=== PATIENT | male | born 1975 | race Caucasian/White ===

== ENCOUNTER 2017-07-08 04:55 | Emergency (ER) | payer BC, OTHER ==
[2017-07-08] MEDS ORDERED: BABY ASPIRIN 81 MG CHEW PO ONE (05:10)
[2017-07-08] MEDS ORDERED: Nitrostat 0.4 MG (ED) SL ONE (05:10)
[2017-07-08] MEDS ORDERED: Sodium Chloride 0.9% 1000 ML 1,000 ML ONE (05:14)
[2017-07-08] MEDS ORDERED: Sodium Chloride 0.9% 1000 ML 1,000 ML IV SCH (05:15)
--- NOTE | 2017-07-08 05:17 | ERPHSYRPT ---
- History of Present Illness Time Seen by Provider: 07/08/17 05:05 Historian: patient Exam Limitations: no limitations Physician History: ABOUT 35 MINUTES AGO PT AWOKE WITH CONSTANT SHARP/DULL MID ANTERIOR CHEST PAIN RADIATING TO THE RIGHT SIDE OF THE NECK WORSE WITH DEEP BREATHING; DENIES DIAPHORESIS, NAUSEA, FEVER, SHORTNESS OF AIR. Aspirin Treatment Today: 81 mg x 4, provided by ED Allergies/Adverse Reactions: No Known Drug Allergies Allergy (Verified 07/08/17 05:14) Home Medications: No Reportable Medications [No Reported Medications] 07/08/17 [History] - Review of Systems Constitutional: No Fever Respiratory: No Dyspnea Cardiac: Chest Pain Abdominal/Gastrointestinal: No Nausea Musculoskeletal: Neck Pain Endocrine: No Excessive Sweating All Other Systems: Reviewed and Negative - Past Medical History Pertinent Past Medical History: Yes Neurological History: No Pertinent History ENT History: No Pertinent History Cardiac History: Hypertension Respiratory History: No Pertinent History Endocrine Medical History: No Pertinent History Musculoskeletal History: No Pertinent History GI Medical History: Hernia History: No Pertinent History Psycho-Social History: No Pertinent History Male Reproductive Disorders: No Pertinent History - Past Surgical History Past Surgical History: Yes Neuro Surgical History: No Pertinent History Cardiac: No Pertinent History Respiratory: No Pertinent History Gastrointestinal: Hernia Repair Genitourinary: No Pertinent History Musculoskeletal: No Pertinent History Male Surgical History: No Pertinent History - Social History Smoking Status: Never smoker Exposure to second hand smoke: No Drug Use: none - Nursing Vital Signs Nursing Vital Signs: Initial Vital Signs Temperature 97.8 F 07/08/17 04:56 Pulse Rate 56 L 07/08/17 04:56 Respiratory Rate 21 07/08/17 04:56 Blood Pressure 147/92 07/08/17 04:56 O2 Sat by Pulse Oximetry 97 07/08/17 04:56 Pain Scale Pain Intensity 2 - Physical Exam General Appearance: alert Eye Exam: PERRL/EOMI Ears, Nose, Throat Exam: TMs normal, pharynx normal, moist mucous membranes Neck Exam: normal inspection Respiratory Exam: lungs clear Cardiovascular Exam: normal heart sounds Gastrointestinal/Abdomen Exam: soft, normal bowel sounds Back Exam: normal range of motion Extremity Exam: normal inspection, No pedal edema Neurologic Exam: alert, cooperative Skin Exam: warm, dry - Course Nursing assessment & vital signs reviewed: Yes EKG Interpreted by Me: RATE (58), Sinus Oh, NORMAL AXIS, NORMAL INTERVALS - Radiology Exams Chest X-ray Interpretation: Interpreted by me, No Pneumonia Ordered Tests: Active Orders 24 hr Category Date Time Status Project Construction Manager STAT Care 07/08/17 05:11 Active EKG-ER Only STAT Care 07/08/17 05:10 Active IV Insertion STAT Care 07/08/17 05:10 Active Oxygen-ED Only NASAL CANNULA 2 lpm Care 07/08/17 05:10 Active Pulse Oximetry (ED) STAT Care 07/08/17 05:10 Active CHEST 2 VIEWS (PA AND LAT) Stat Exams 07/08/17 05:10 Taken AMYLASE Stat Lab 07/08/17 05:25 Completed CBC W DIFF Stat Lab 07/08/17 05:25 Completed CMP Stat Lab 07/08/17 05:25 Completed LIPASE Stat Lab 07/08/17 05:25 Completed MAGNESIUM Stat Lab 07/08/17 05:25 Completed NT PRO BNP Stat Lab 07/08/17 05:25 Completed TROPONIN Q3H Lab 07/08/17 05:25 Completed TROPONIN Q3H Lab 07/08/17 08:15 Ordered TROPONIN Q3H Lab 07/08/17 11:15 Ordered TROPONIN Q3H Lab 07/08/17 14:15 Ordered TROPONIN Q3H Lab 07/08/17 17:15 Ordered Medication Summary Generic Name Dose Route Start Last Admin Trade Name Freq PRN Reason Stop Dose Admin Sodium Chloride 1,000 mls @ 100 mls/hr 07/08/17 05:15 07/08/17 05:17 Sodium Chloride 0.9% 1000 Ml IV 08/07/17 05:14 100 mls/hr .Q10H SINGH Administration Discontinued Medications Generic Name Dose Route Start Last Admin Trade Name Freq PRN Reason Stop Dose Admin Aspirin 324 mg 07/08/17 05:10 07/08/17 05:17 Baby Aspirin 81 Mg Chew PO 07/08/17 05:11 324 mg STAT ONE Administration Nitroglycerin 0.4 mg 07/08/17 05:10 07/08/17 05:17 Nitrostat 0.4 Mg (Ed) SL 07/08/17 05:11 0.4 mg STAT ONE Administration Lab/Rad Data: Laboratory Result Diagrams 07/08/17 05:25 07/08/17 05:25 Laboratory Results 09/24/17 09/24/17 09/24/17 Range/Units 05:25 05:25 05:25 WBC 8.2 (4.0-10.5) K/mm3 RBC 5.12 (4.1-5.6) M/mm3 Hgb 15.4 (12.5-18.0) gm/dl Hct 44.4 (42-50) % MCV 86.7 (78-100) fl MCH 30.1 (26-32) pg MCHC 34.7 (32-36) g/dl RDW 13.2 (11.5-14.0) % Plt Count 248 (150-450) K/mm3 MPV 10.1 H (6-9.5) fl Gran % 49.8 (36.0-66.0) % Lymphocytes % 34.8 (24.0-44.0) % Monocytes % 9.6 (0.0-12.0) % Eosinophils % 5.2 H (0.00-5.0) % Basophils % 0.6 (0.0-0.4) % Basophils # 0.05 (0-0.4) Sodium 143 (136-145) mEq/L Potassium 3.8 (3.5-5.1) mEq/L Chloride 108 H (98-107) mEq/L Carbon Dioxide 26.6 (21-32) mEq/L Anion Gap 11.7 (5-15) MEQ/L BUN 11 (9-20) mg/dL Creatinine 1.14 (0.55-1.30) mg/dl Estimated GFR > 60 ML/MIN Glucose 95 (70-110) MG/DL Calcium 8.8 (8.5-10.1) mg/dL Magnesium 2.0 (1.8-2.4) mg/dL Total Bilirubin 0.30 (0.2-1.0) mg/dL AST 21 (15-37) U/L ALT 29 (12-78) U/L Alkaline Phosphatase 77 (46-116) U/L Troponin I < 0.017 (0.000-0.056) ng/ml NT-Pro-B Natriuret Pep 21 (0-125) pg/ml Serum Total Protein 6.9 (6.4-8.2) gm/dL Albumin 3.8 (3.4-5.0) g/dL Amylase 27 (25-115) U/L Lipase 129 (73-393) U/L - Departure Time of Disposition: 06:46 Departure Disposition: Home Clinical Impression: CHEST PAIN, HTN Condition: Stable Critical Care Time: No Referrals: LJ CARY MD [Primary Care Provider] - Instructions: Chest Pain Additional Instructions: FOLLOW UP WITH PRIVATE DOCTOR TOMORROW.
[2017-07-08 05:32] LABS: BASOPHIL % 0.6 % (0.0-0.4); Eosinophil % 5.2 % (0.00-5.0); Granulocytes % 49.8 % (36.0-66.0); Lymphocytes % 34.8 % (24.0-44.0); Mean Cell Volume 86.7 fl (78-100); Mean Corpuscular Hemoglobin 30.1 pg (26-32); Mean Platelet Volume 10.1 fl (6-9.5); Monocytes % 9.6 % (0.0-12.0); Platelet Count 248 K/mm3 (150-450); Red Blood Count 5.12 M/mm3 (4.1-5.6); Red Cell Distribution Width 13.2 % (11.5-14.0); White Blood Count 8.2 K/mm3 (4.0-10.5)
[2017-07-08 05:59] LABS: ALBUMIN 3.8 g/dL (3.4-5.0); ALKALINE PHOSPHATASE 77 U/L (46-116); ANION GAP 11.7 MEQ/L (5-15); BLOOD UREA NITROGEN 11 mg/dL (9-20); CHLORIDE 108 mEq/L (98-107); Carbon Dioxide 26.6 mEq/L (21-32); Glucose 95 MG/DL (70-110); LIPASE 129 U/L (73-393); Potassium 3.8 mEq/L (3.5-5.1); SGOT/AST 21 U/L (15-37); SGPT/ALT 29 U/L (12-78); SODIUM 143 mEq/L (136-145); Total Protein 6.9 gm/dL (6.4-8.2)
[2017-07-08] MEDS ORDERED: Phenergan 25 MG INJ IV ONE (06:49)
[2017-07-08] MEDS ORDERED: Hydromorphone 1 mg/ml Ampule IV ONE (06:49)
[2017-07-08] MEDS ORDERED: Hydromorphone 1 mg/ml Ampule ONE (06:52)
[2017-07-08] MEDS ORDERED: Phenergan 25 MG INJ ONE (06:52)
[2017-07-08 07:28] VITALS: BP 126/84; PULSE 84; O2SAT 96
--- NOTE | 2017-07-08 10:35 | XRAY ---
Indication: Chest pain. Comparison: October 14, 2010. PA/lateral chest remains clear again with a few incidental calcific granulomas. Heart is not enlarged. Vascularity normal. Bony thorax intact. Impression: Stable nonacute chest.
== END 2017-07-08 07:27 | disposition home or self-care (01) ==
LOC: ED 04:55
DX: R07.89 Other chest pain (principal); I10 Essential (primary) hypertension
CPT/HCPCS: 36000; 36415; 71020; 80053; 82150; 83690; 83735; 83880; 84484; 85025; 93005; 93041; 96360; 96361; 96374; 96375; 99284; J1170; J2550; A9270-GY

== ENCOUNTER 2017-08-09 17:47 | Emergency (ER) | payer OTHER ==
--- NOTE | 2017-08-09 18:26 | ERPHSYRPT ---
- History of Present Illness Source: patient Exam Limitations: no limitations Patient Subjective Stated Complaint: pt here for right sided groin pain for a couple days was seen and put on levaquin for 10 days, and pt states he is not any better Triage Nursing Assessment: pt walked in resp easy, skin w/d pink. no pain or burning with urination, Quality: aching Onset Location: scrotal, right testicle Pain Radiation: none Hx Tetanus, Diphtheria Vaccination/Date Given: Yes Hx Influenza Vaccination/Date Given: No Hx Pneumococcal Vaccination/Date Given: No Immunizations Up to Date: Yes <LINUS BEAL - Last Filed: 08/09/17 19:09> <LALITO RODRIGUEZ - Last Filed: 08/09/17 20:30> - History of Present Illness Time Seen by Provider: 08/09/17 18:22 Physician History: mild right testicular ache pain for 2 days, not better after taking levaquin, no injury, no fever, pt refused pain med, no hx renal stones, sexually active with his only, hx htn, no NV, no hematuria or dysuria (LINUS BEAL) Allergies/Adverse Reactions: No Known Drug Allergies Allergy (Verified 07/08/17 05:14) Home Medications: No Reportable Medications [No Reported Medications] 07/08/17 [History] - Past Medical History Pertinent Past Medical History: Yes Neurological History: No Pertinent History ENT History: No Pertinent History Cardiac History: Hypertension Respiratory History: No Pertinent History Endocrine Medical History: No Pertinent History Musculoskeletal History: No Pertinent History GI Medical History: Hernia History: No Pertinent History Psycho-Social History: No Pertinent History Male Reproductive Disorders: No Pertinent History - Past Surgical History Past Surgical History: Yes Neuro Surgical History: No Pertinent History Cardiac: No Pertinent History Respiratory: No Pertinent History Gastrointestinal: Hernia Repair Genitourinary: No Pertinent History Musculoskeletal: No Pertinent History Male Surgical History: No Pertinent History - Social History Smoking Status: Never smoker Exposure to second hand smoke: No Drug Use: none Patient Lives Alone: No <LINUS BEAL - Last Filed: 08/09/17 19:09> - Review of Systems Constitutional: No Fever Abdominal/Gastrointestinal: No Symptoms Genitourinary Symptoms: Testicle Pain, No Dysuria, No Hematuria, No Penile Discharge Musculoskeletal: No Back Pain Skin: No Rash Neurological: No Symptoms Psychological: No Symptoms <LINUS BEAL - Last Filed: 08/09/17 19:09> - Physical Exam General Appearance: no apparent distress Respiratory Exam: No respiratory distress Gastrointestinal/Abdomen Exam: soft, No tenderness, No distention Male Genital Exam: normal genitalia, no hernia, scrotum tenderness (R), testicular tenderness (R), No inguinal tenderness, No lesions, No herpes-like lesion(s), No inguinal lymphadenopathy, No uncircumcised Extremity Exam: normal range of motion Neurologic Exam: alert, oriented x 3, cooperative, normal mood/affect Skin Exam: normal color, warm, dry <LINUS BEAL - Last Filed: 08/09/17 19:09> - Nursing Vital Signs Nursing Vital Signs: Initial Vital Signs Temperature 97.7 F 08/09/17 17:57 Respiratory Rate 18 08/09/17 17:57 Blood Pressure 153/98 08/09/17 17:57 Pain Scale Pain Intensity 6 - Course Nursing assessment & vital signs reviewed: Yes <LALITO RODRIGUEZ - Last Filed: 08/09/17 20:30> Ordered Tests: Active Orders 24 hr Category Date Time Status TESTICLE [US] Stat Exams 08/09/17 18:21 Taken UA W/RFX UR CULTURE Stat Lab 08/09/17 18:20 Completed Lab/Rad Data: Laboratory Results 08/09/17 Range/Units 18:20 Ur Collection Type CLEAN CATCH Urine Color YELLOW (YELLOW) Urine Appearance CLEAR (CLEAR) Urine pH 5.0 (5-6) Ur Specific [place] 1.020 (1.005-1.025) Urine Protein NEGATIVE (Negative) Urine Ketones NEGATIVE (NEGATIVE) Urine Blood NEGATIVE (0-5) Aamir/ul Urine Nitrite NEGATIVE (NEGATIVE) Urine Bilirubin NEGATIVE (NEGATIVE) Urine Urobilinogen NORMAL (0-1) mg/dL Ur Leukocyte Esterase NEGATIVE (NEGATIVE) Urine Culture Reflexed NO (NO) Urine Glucose NEGATIVE (NEGATIVE) mg/dL Specimen Received 08/09/17 1820 <LINUS BEAL - Last Filed: 08/09/17 19:09> - Progress Progress: improved <LALITO RODRIGUEZ - Last Filed: 08/09/17 20:30> - Progress Progress Note: 08/09/17 19:[address] oRdriguez (LINUS BEAL) 08/09/17 20:28 The testicular US does not show any torsion. Pt was started on levaquin which I have advised the patient to continue until completion. I have also advised the patient to F/U with his PCP if the pain should continue for urology referral. ( LALITO RODRIGUEZ) <LINUS BEAL - Last Filed: 08/09/17 19:09> - Departure Time of Disposition: 20:29 Departure Disposition: Home Critical Care Time: No <LALITO RODRIGUEZ - Last Filed: 08/09/17 20:30> - Departure Clinical Impression: Testicular pain Condition: Stable Referrals: LJ CARY MD [Primary Care Provider] - Instructions: Groin Strain Additional Instructions: Follow up with your PCP in the next 2-3 days if you should continue to have testicular pain. You can take 3-4 of Motrin 200mg every 6-8 hrs as needed for the pain.
[2017-08-09 18:42] LABS: Collection Type CLEAN CATCH
[2017-08-09 18:43] LABS: ADD URINE CULTURE? NO (NO); Bilirubin NEGATIVE (NEGATIVE); Blood NEGATIVE Ery/ul (0-5); COMPLETE URINE MICROSCOPIC? NO; Glucose NEGATIVE (NEGATIVE); Leukocyte Esterase NEGATIVE (NEGATIVE)
[2017-08-09 20:38] VITALS: BP 139/92; PULSE 58; O2SAT 97
--- NOTE | 2017-08-09 20:56 | XRAY ---
Exam: Testicular ultrasound from 08/09/2017. Comparison: None. Indication: Right testicular pain since yesterday morning, no known injury. Findings: The right testicle measured 4.0 cm in length and 2.7 cm x 2.7 cm in cross section. The right testicle revealed a uniform echogenicity without microlithiasis or mass. There was normal color blood flow and Doppler signal within the right testicle which excludes testicular torsion. 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 I believe this is an incidental finding. There is no hydrocele. The left testicle measured 4.4 cm in length and 3.4 cm x 2.2 cm in cross section. It also reveals a uniform echogenicity without evidence of mass or significant microlithiasis. Normal color blood flow and Doppler signal is seen within the left testicle excluding testicular torsion. The head of the left epididymis measured 1.0 cm x 1.4 cm and appeared unremarkable. No significant hydrocele is seen. Impression: 1. I see no evidence of testicular torsion, particularly on the right side where the patient complains of pain. 2. Both testicles appear unremarkable. No testicular mass is seen. 3. 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
== END 2017-08-09 20:37 | disposition home or self-care (01) ==
LOC: ED 17:47
DX: N50.811 Right testicular pain (principal)
CPT/HCPCS: 76870; 81002; 99282